=== PATIENT | male | born 1955 ===

== ENCOUNTER 2020-01-27 09:10 | Emergency (ER) | payer OTHER ==
[~2020-01-27] VITALS: Ht 188 cm; Wt 72.7 kg
[2020-01-27 09:11] VITALS: Ht 188 cm; Wt 72.7 kg
[2020-01-27] MEDS ORDERED: ROCEPHIN 1 GM/D51 G1 IM (09:12)
[2020-01-27] MEDS ORDERED: [UNRECOGNIZED DRUG - OTHER] (09:13)
[2020-01-27] MEDS ORDERED: APAP325 MG (09:13)
[2020-01-27] MEDS ORDERED: LIPITOR10 MG PO (09:13)
[2020-01-27] MEDS ORDERED: SINEMET 25-1001 EAC1 (09:13)
[2020-01-27] MEDS ORDERED: BAYER CHEWABLE81 MG (09:14)
[2020-01-27] MEDS ORDERED: LORAZEPAM1 MG/0.5 M (09:14)
[2020-01-27] MEDS ORDERED: LIORESAL 10 MG10 MG (09:14)
[2020-01-27] MEDS ORDERED: HALDOL5 MG (09:14)
[2020-01-27] MEDS ORDERED: KEPPRA500 MG (09:14)
[2020-01-27] MEDS ORDERED: DULCOLAX5 MG (09:14)
[2020-01-27 10:35] VITALS: BP 93/54
== END 2020-01-27 10:35 | disposition other institution (70) ==
LOC: D.ER 09:10
DX: R31.9 Hematuria, unspecified (principal); T83.9XXA Unspecified complication of genitourinary prosthetic device, implant and graft, initial encounter; T83.028A Displacement of other urinary catheter, initial encounter; N40.0 Benign prostatic hyperplasia without lower urinary tract symptoms; R33.9 Retention of urine, unspecified; Z86.19 Personal history of other infectious and parasitic diseases